=== PATIENT | male | born 1955 | race Caucasian/White ===

== ENCOUNTER 2016-08-22 09:13 | Emergency (ER) | payer BC, OTHER ==
[~2016-08-22] VITALS: Ht 172.7 cm; Wt 105.1 kg
[2016-08-22 09:14] VITALS: TEMP 36.8; Ht 172.7 cm; Wt 105.1 kg
[2016-08-22] MEDS ORDERED: DIPHTHERIA/TETANUS/PERTUSSIS 0.5 ML SYR/VIAL IM. ONE (09:30)
[2016-08-22] MEDS ORDERED: XYLOCAINE 1%/SOD BICARB 20 ML VIAL INFIL ONE (09:30)
--- NOTE | 2016-08-22 09:33 | EMERGENCY ROOM VISIT NOTE ---
ED Visit Note First contact with patient: 09:23 CHIEF COMPLAINT: Hand laceration HISTORY OF PRESENT ILLNESS: This 61-year-old male patient presents to the emergency department ambulatory after cutting the right hand on a sharp cabinet at work just prior to arrival. The bleeding has stopped. Denies weakness or numbness of the hand or fingers. The patient denies any pain. The patient denies any other injuries. The patient's Tetanus shot is not up to date. REVIEW OF SYSTEMS: A 6 system review of systems was completed with positives and pertinent negatives listed in the HPI. ALLERGIES: Loratadine MEDICATIONS: Patient denies PMH: Patient denies SOCIAL HISTORY: The patient is employed. He does not smoke PHYSICAL EXAM: Vital Signs: Reviewed Nurse's notes, vital signs stable. GENERAL : This is a 61-year-old male, in no acute distress, well-developed, well- nourished. SKIN: There is a 3 cm long laceration on the dorsal aspect of the right hand. The edges gape apart with traction. There is no foreign material in the wound and it looks clean. There is no bleeding. No deep structures such as tendons, bones, or nerves are seen in the base of the wound. Normal strength and movement of the fingers and wrist. Capillary refill less than 2 seconds. Normal sensation to light and sharp touch. EMERGENCY DEPARTMENT COURSE: I examined the patient. Using sterile technique the wound was cleaned with Betadine. The area was sterilely draped. 3 ml of 1% buffered lidocaine was used to anesthetize the laceration on the hand. Once the patient was numb, the wound was copiously irrigated under pressure with sterile saline. The wound was explored and was as described above. The laceration was repaired using 6 simple interrupted 5-0 nylon sutures with the wound edges being well approximated. The patient tolerated the procedure well. The bleeding stopped. The area was cleaned with sterile saline and dressed with bacitracin ointment and bandage. The patient was given Td immunization. The patient was discharged home in good condition. DIAGNOSIS: Hand laceration DISCHARGE INSTRUCTIONS & TREATMENT: Keep wound clean and dry. Do not allow any crusting or dried blood to accumulate on sutures. If this occurs, use a 1:1 solution of hydrogen peroxide/water on a Q-tip to clean the wound. Use an antibiotic ointment for 3-4 days, then let wound dry. Suture removal in 10-12 days. Return sooner for any signs of infection (increasing redness, swelling, drainage). Ice and elevate for swelling and pain. Ibuprofen 600 mg every 6 hrs for pain. Keep covered when in sun until sutures removed then SPF 50 or higher for one year. Vitamin E oil if desired two weeks after suture removal for reduction of scar. Current/Historical Medications No Active Prescriptions or Reported Meds Allergies Coded Allergies: Loratadine (Unverified Allergy, Unknown, ., 08/22/16) Vital Signs Date Time Temp Pulse Resp B/P (MAP) Pulse Ox O2 Delivery O2 Flow Rate FiO2 08/22/16 10:25 66 18 139/90 98 08/22/16 09:14 36.8 67 18 160/91 97 Room Air Medications Administered Medications (Trade) Dose Ordered Sig/Adrianne Route Start Time Stop Time Status Last Admin Dose Admin Diphtheria/ Pertussis/Tetanus Vacc (Adacel Inj) 0.5 ml ONCE ONCE IM. 08/22/16 09:30 08/22/16 09:32 DC 08/22/16 09:44 0.5 ML Departure Information Impression Primary Impression: Laceration Dispostion Home / Self-Care Condition GOOD Prescriptions No Active Prescriptions or Reported Meds Referrals No Doctor, Assigned (PCP) Patient Instructions ED Laceration All, [facility] Additional Instructions Keep wound clean and dry. Do not allow any crusting or dried blood to accumulate on sutures. If this occurs, use a 1:1 solution of hydrogen peroxide/ water on a Q-tip to clean the wound. Use an antibiotic ointment for 3-4 days, then let wound dry. Suture removal in 10-12 days. Return sooner for any signs of infection (increasing redness, swelling, drainage). Ice and elevate for swelling and pain. Ibuprofen 600 mg every 6 hrs for pain. Keep covered when in sun until sutures removed then SPF 50 or higher for one year. Vitamin E oil if desired two weeks after suture removal for reduction of scar.
[2016-08-22 10:25] VITALS: BP 139/90; PULSE 66; O2SAT 98
== END 2016-08-22 10:25 | disposition home or self-care (01) ==
LOC: C.EDB 09:15 → C.EDA 10:25
DX: S61.411A Laceration without foreign body of right hand, initial encounter (principal); W45.8XXA Other foreign body or object entering through skin, initial encounter; Y99.0 Civilian activity done for income or pay; Z23 Encounter for immunization

== ENCOUNTER → 2016-12-25 | Outpatient (CLI) | payer BC ==
--- NOTE | 2016-12-25 09:11 | DIAGNOSTIC IMAGING REPORT ---
RIGHT KNEE 4 VIEWS HISTORY: M25.561 Knee pain, [id number] COMPARISON: None. FINDINGS: There is no fracture or dislocation. Soft tissues are unremarkable. No radiopaque foreign bodies. Small knee effusion. Cartilage spaces are maintained for age. IMPRESSION: No fractures. Small knee effusion. Electronically signed by: Wing Cheney M.D. 12/25/2016 9:09 AM Dictated Date/Time: 12/25/2016 9:08 AM
== END | disposition home or self-care (01) ==
LOC: C.RAD1850 08:21
PROVIDERS: ATTEND Physician Assistant Medical
DX: M25.561 Pain in right knee (principal)